=== PATIENT | male | born 1985 | race Caucasian/White ===

== ENCOUNTER 2019-09-28 05:26 | Emergency (ER) | payer SELFPAY ==
[~2019-09-28] VITALS: Ht 167.6 cm; Wt 68.0 kg
[2019-09-28 05:28] VITALS: BP 140/96
--- NOTE | 2019-09-28 05:35 | NUR ---
Pt [facility] room [facility], ambulatory with steady gait.
[2019-09-28] MEDS ORDERED: ACETAMINOPHEN 325 MG TABLET ONE (05:53)
--- NOTE | 2019-09-28 05:57 | NUR ---
Pt provided with clean socks, chilo crackers, milk, cheese per request. Pt medicated per MAR, denies other needs.
[2019-09-28] MEDS ORDERED: ACETAMINOPHEN 325 MG TABLET PO ONE (06:00)
== END 2019-09-28 06:53 ==
LOC: ED 06:47
DX: M79.671 Pain in right foot (principal); M79.672 Pain in left foot; F17.200 Nicotine dependence, unspecified, uncomplicated
CPT/HCPCS: 99282